=== PATIENT | male | born 1965 | race Caucasian/White ===

== ENCOUNTER 2020-12-10 09:29 | Outpatient (RCR) | payer OTHER, SELFPAY | END 2021-02-24 08:11 | disposition home or self-care (01) | LOC: ANHDMC 09:29 | PROVIDERS: PCP Internal Medicine; Visit Provider Nurse Practitioner | DX: E11.9 Type 2 diabetes mellitus without complications (principal); Z71.89 Other specified counseling | CPT/HCPCS: G0108 ==

== ENCOUNTER 2021-05-28 10:11 | Emergency (ER) | payer OTHER, SELFPAY ==
[2021-05-28 10:17] VITALS: BP 135/88; PULSE 96; RESP 12; TEMP 36.6; O2SAT 99
--- NOTE | 2021-05-28 10:20 | ED.EXTPRO ---
HPI - Extremity Problem General Chief complaint: Extremity Problem,Nontraumatic Stated complaint: lt ankle/foot pain Time Seen by Provider: 05/28/21 10:25 Source: patient, RN notes reviewed and old records reviewed Mode of arrival: ambulatory Limitations: no limitations History of Present Illness HPI Narrative: 55-year-old male who presents to [facility] with complaints of left ankle foot pain for the past 3 days. Patient states that he usually gets gout flare about every 10 month and he is out of his Mitigare. Patient states that he ate some Kamar food on Tuesday which is the only thing he has done or eaten differently. Patient states he has also noticed some swelling to the palmar aspects of bilateral hands with no pain voiced, denies any difficulty with his swallowing or any difficulty with breathing. Respirations are even and nonlabored no tachypnea noted SaO2 99% on room air. MD Complaint: extremity pain, extremity swelling and joint swelling Onset (ago): day(s) (3) Pain Consistency: constant Location: left and lower extremity (ankle) Severity scale (1-10): 8 ( ) Quality: sharp and other (throbbing) Radiation: none Exacerbating factors: walking Associated symptoms: other (york aspect of hands swollen) Context: history of gout Related Data Home Medications Medication Instructions Recorded Confirmed colchicine [Mitigare] 0.6 mg PRN PRN 09/04/19 05/28/21 fenofibrate 160 mg PO DAILY 09/04/19 05/28/21 Allergies Allergy/AdvReac Type Severity Reaction Status Date / Time lisinopril Allergy Severe Other Verified 05/28/21 10:18 naproxen Allergy Mild rash Verified 05/28/21 10:18 Review of Systems Review of Systems: CONSTITUTIONAL: Denies fever, chills, or sweats. EYES: Denies visual changes, redness, or discharge. ENT: Denies rhinorrhea, congestion, sore throat, or otalgia. CARDIOVASCULAR: Denies chest pain, palpitations, or edema. RESPIRATORY: Denies cough or dyspnea. GASTROINTESTINAL: Denies abdominal pain, nausea, vomiting, or diarrhea. GENITOURINARY: Denies dysuria or hematuria. SKIN: Denies rash or itching.Swelling to bilateral york hands denies any itching no redness or warmth noted. MUSCULOSKELETAL: Denies back pain,positive left ankle and foot pain, or myalgia. NEUROLOGIC: Denies headache, numbness, or weakness. PSYCHIATRIC: Denies anxiety or depression. All systems reviewed & are unremarkable except as noted in HPI and below PMFSH Past Medical History Medical History Angioedema Due to lisinopril back in March of 2018 and again this admission Colon polyps chronic Gout Hyperlipidemia Hypertension Surgical History Surgical History H/O rectal polypectomy Family History Family History Father Carcinoma of colon Mother Brain tumor Social History Social History Social History: The patient is to denice. He is designated as a full code. Occasionally smoke a cigar. Social drinker. He has 2 healthy children. 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 Smoking status: Light tobacco smoker Tobacco type: cigars Alcohol intake: current Alcohol use details: Social Substance use: never Gender identity (if verbalized by the patient): Male Spiritual care concerns: No Agree to blood products: Yes Comments At time of signature, agree with nursing past medical, surgical, social and family history. There is no relevant family history pertinent to the presenting complaint Exam Narrative: GENERAL: Well-appearing, well-nourished, and in no acute distress. HEAD: Normocephalic, atraumatic. EYES: PERRLA and EOMI. ENT: Nares clear, no rhinorrhea or epistaxis. Mucous membranes moist.TM' s normal with good light reflex bilaterally, throat pink with no e
== END 2021-05-28 11:00 | disposition home or self-care (01) ==
PROVIDERS: Emergency Provider Registered Nurse; PCP Internal Medicine
DX: M10.9 Gout, unspecified (principal); Z72.0 Tobacco use; E78.5 Hyperlipidemia, unspecified; I10 Essential (primary) hypertension
CPT/HCPCS: 99213; G0463

== ENCOUNTER 2021-08-07 22:44 | Emergency (ER) | payer OTHER, SELFPAY ==
[2021-08-07 22:50] VITALS: BP 166/106; PULSE 84; RESP 18; TEMP 35.9; O2SAT 100
[2021-08-08 00:42] VITALS: BP 155/104; PULSE 71; RESP 15; O2SAT 97
--- NOTE | 2021-08-08 01:23 | ED.ALLEREA ---
HPI - Allergic Reaction General Chief complaint: Allergic Reaction Stated complaint: tongue swelling used epi pen at 2044 Time Seen by Provider: 08/08/21 00:35 Source: patient and RN notes reviewed Mode of arrival: ambulatory Limitations: no limitations History of Present Illness HPI narrative: This is a 56 year old male with history of angioedema who presents for evaluation of tongue swelling. He states he developed tongue swelling around 8 pm tonight. He took an epipen 4 hours ago. He states his tongue swelling has improved. He denies difficulty swallowing, difficulty breathing , rash or sore throat. This is his 3rd episode and his last episode was 2 years ago. Patient states his first episode was due to ACEI but his blood pressure medication was changed. Related Data Home Medications Medication Instructions Recorded Confirmed colchicine [Mitigare] 0.6 mg PRN PRN 09/04/19 05/28/21 fenofibrate 160 mg PO DAILY 09/04/19 05/28/21 Allergies Allergy/AdvReac Type Severity Reaction Status Date / Time lisinopril Allergy Severe Other Verified 08/07/21 22:54 naproxen Allergy Mild rash Verified 08/07/21 22:54 Review of Systems Review of Systems: All systems reviewed & are unremarkable except as noted in HPI and below PMFSH Past Medical History Medical History Angioedema Due to lisinopril back in March of 2018 and again this admission Colon polyps chronic Gout Hyperlipidemia Hypertension Surgical History Surgical History H/O rectal polypectomy Family History Family History Father Carcinoma of colon Mother Brain tumor Social History Social History Social History: The patient is to denice. He is designated as a full code. Occasionally smoke a cigar. Social drinker. He has 2 healthy children. 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 Smoking status: Light tobacco smoker Tobacco type: cigars Alcohol intake: current Alcohol use details: Social Substance use: never Gender identity (if verbalized by the patient): Male Spiritual care concerns: No Agree to blood products: Yes Exam Const: General: no acute distress and alert Orientation/consciousness: patient oriented x3 HENMT: Head: normocephalic Face and sinus: face symmetric Mouth: Yes lip normal, Yes moist mucous membranes, Yes tongue abnormal (moderate tongue swelling present), No trismus and No restricted motion Throat: uvula midline Eyes: Pupils: Equal, round and reactive pupils present EOM: EOMs intact bilaterally Chest: Chest palpation & inspection: normal inspection of the chest Resp: Effort & Inspection: normal respiratory effort and no retractions Auscultation: clear to auscultation bilaterally Cardio: Rate: regular rate Skin: General skin exam: normal color Rashes: no rashes Neuro: General: patient oriented x3, moves all extremities and CN's II-XI intact bilaterally Course Reevaluation(s) Reevaluation #1: Patient states he continues to have improvement in his swelling. He would like to be discharged home. He was given return precautions. Date: 08/08/21 Time: 03:02 Vital Signs Vital signs: Vital Signs Temperature 96.7 F L 08/07/21 22:50 Pulse Rate 84 08/07/21 22:50 Respiratory Rate 18 08/07/21 22:50 Blood Pressure 166/106 H 08/07/21 22:50 Pulse Oximetry 100 08/07/21 22:50 Temperature 96.7 F L 08/07/21 22:50 Pulse Rate 79 08/08/21 03:20 Respiratory Rate 18 08/08/21 03:20 Blood Pressure 132/91 H 08/08/21 03:20 Pulse Oximetry 98 08/08/21 03:20 Discharge Plan Discharge Clinical Impression: Angioedema Qualifiers: Encounter type: initial encounter Qualified Code(s): T78.3XXA - Angioneurotic edema, initial enc
[2021-08-08] MEDS: predniSONE 20 MG TABLET 60 MG PO (01:35)
[2021-08-08] MEDS: FAMOTIDINE 20 MG TABLET PO (01:36)
[2021-08-08 01:37] VITALS: BP 149/99; PULSE 83; RESP 20; O2SAT 98
[2021-08-08 03:20] VITALS: BP 132/91; PULSE 79; RESP 18; O2SAT 98
== END 2021-08-08 03:24 | disposition home or self-care (01) ==
PROVIDERS: Emergency Provider General Practice; PCP Internal Medicine
DX: T78.3XXA Angioneurotic edema, initial encounter (principal); E78.5 Hyperlipidemia, unspecified; I10 Essential (primary) hypertension; M10.9 Gout, unspecified; Z87.19 Personal history of other diseases of the digestive system; F17.290 Nicotine dependence, other tobacco product, uncomplicated
CPT/HCPCS: 99283; A9270; J7512

== ENCOUNTER 2021-10-05 14:52 | Emergency (ER) | payer OTHER, SELFPAY ==
--- NOTE | 2021-10-05 14:56 | ED.URI ---
HPI - URI/Sore Throat General Chief Complaint: Upper Respiratory Infection Stated Complaint: cough Time Seen by Provider: 10/05/21 14:57 Source: patient and RN notes reviewed History of Present Illness HPI Narrative: Patient is a 56-year-old male who presents the urgent care with complaints of a persistent cough for the last 4 to 5 days. Patient states that he had Covid and was recently out of quarantine last . Patient states that since then the cough has been persistent. States that the cough is mostly dry. Denies of any recent fevers, nausea, vomiting, chest pain or shortness of breath. Patient states has been using cough drops to help soothe the cough. No other acute complaints. No acute distress noted. Patient is vaccinated for Covid. Patient aware of the plan of care. Some parts of this dictation were generated by voice recognition software and may contain typographical and/or grammatical inaccuracies. Related Data Home Medications Medication Instructions Recorded Confirmed colchicine [Mitigare] 0.6 mg PRN PRN 09/04/19 05/28/21 fenofibrate 160 mg PO DAILY 09/04/19 05/28/21 Allergies Allergy/AdvReac Type Severity Reaction Status Date / Time lisinopril Allergy Severe Other Verified 10/05/21 15:03 naproxen Allergy Mild rash Verified 10/05/21 15:03 Review of Systems Review of Systems: CONSTITUTIONAL: Denies fever, chills, or sweats. EYES: Denies visual changes, redness, or discharge. ENT: Denies rhinorrhea, congestion, sore throat, or otalgia. CARDIOVASCULAR: Denies chest pain, palpitations, or edema. RESPIRATORY: Reports of dry cough without dyspnea GASTROINTESTINAL: Denies abdominal pain, nausea, vomiting, or diarrhea. GENITOURINARY: Denies dysuria or hematuria. SKIN: Denies rash or itching. MUSCULOSKELETAL: Denies back pain, joint pain, or myalgia. NEUROLOGIC: Denies headache, numbness, or weakness. All other systems reviewed are negative, except as documented in HPI. [facility] Past Medical History Medical History Angioedema Due to lisinopril back in March of 2018 and again this admission Colon polyps chronic Gout Hyperlipidemia Hypertension Surgical History Surgical History H/O rectal polypectomy Family History Family History Father Carcinoma of colon Mother Brain tumor Social History Social History Social History: The patient is to denice. He is designated as a full code. Occasionally smoke a cigar. Social drinker. He has 2 healthy children. 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 Smoking status: Light tobacco smoker Tobacco type: cigars Alcohol intake: current Alcohol use details: Social Substance use: never Gender identity (if verbalized by the patient): Male Spiritual care concerns: No Agree to blood products: Yes Comments At the time of my signature, I reviewed and agree with the nursing past medical, surgical, social, and family history. There is no relevant family history pertinent to the patient complaint. Exam Narrative: GENERAL: This is a well-nourished, well-developed patient, in no apparent distress. HEAD: normocephalic, atraumatic. EYES: PERRL. Sclera clear/white. Vision is grossly intact. EARS: External ears normal, auditory canals clear and without drainage, TMs normal without perforation. Hearing grossly intact. NOSE: External nose normal with no obvious nasal discharge, nares without redness, no rhinorrhea. THROAT: Mucous membranes moist, posterior pharynx clear. Moderate postnasal drainage NECK: Neck supple CARDIOVASCULAR: Regular rate and rhythm without murmurs, gallops, or rubs. RESPIRATORY: Clear to auscultation. Breath sounds equal bilaterally. No wheezes, rales, or rhonchi. Dry cough on
[2021-10-05 15:00] VITALS: BP 165/106; PULSE 92; RESP 16; TEMP 37; O2SAT 98
== END 2021-10-05 15:23 | disposition home or self-care (01) ==
PROVIDERS: Emergency Provider Nurse Practitioner Family; PCP Internal Medicine
DX: R05.9 Cough, unspecified (principal); U09.9 Post COVID-19 condition, unspecified; E78.5 Hyperlipidemia, unspecified; I10 Essential (primary) hypertension; F17.200 Nicotine dependence, unspecified, uncomplicated
CPT/HCPCS: 99213; G0463

== ENCOUNTER 2022-02-25 04:48 | Emergency (ER) | payer OTHER, SELFPAY ==
[2022-02-25 04:50] VITALS: BP 148/84; PULSE 100; RESP 16; TEMP 36.2; O2SAT 97
--- NOTE | 2022-02-25 04:58 | ED.ALLEREA ---
HPI - Allergic Reaction General Chief complaint: Allergic Reaction Stated complaint: facial swelling Time Seen by Provider: 02/25/22 04:58 Source: patient Mode of arrival: ambulatory Limitations: no limitations History of Present Illness HPI narrative: Pt is a 56 yo male with a history of angioedema presenting to the ER for evaluation of tongue swelling. Pt reports tongue swelling that began this morning for which patient has taken oral benadryl. Patient reports the right side of his tongue is swollen. He denies facial swelling, lip edema. He denies difficulty swallowing, shortness of breath. Denies chest pain. Patient states in the past this has occurred it was initially attributed to his antihypertensive medication and was taken off the lisinopril. Since that time, he has been compliant with his metoprolol, nifedipine, fenofibrate, states his would be his third episode since the medication change. Patient is requesting oral medication only, does not have any hives, itching, wheezing, nausea, vomiting or diarrhea. In the past, patient states his allergy work-up has been negative. Related Data Home Medications Medication Instructions Recorded Confirmed fenofibrate 160 mg PO DAILY 09/04/19 10/05/21 Allergies Allergy/AdvReac Type Severity Reaction Status Date / Time lisinopril Allergy Severe Other Verified 02/25/22 04:55 naproxen Allergy Mild rash Verified 02/25/22 04:55 Review of Systems Review of Systems: CONSTITUTIONAL: Denies fever HEENT: Reports tongue edema of the right side CARDIOVASCULAR: Denies chest pain RESPIRATORY: Denies cough or dyspnea. GASTROINTESTINAL: Denies abdominal pain SKIN: Denies rash MUSCULOSKELETAL: Denies back pain NEUROLOGIC: Denies headache PMFSH Past Medical History Medical History Angioedema Due to lisinopril back in March of 2018 and again this admission Colon polyps chronic Gout Hyperlipidemia Hypertension Surgical History Surgical History H/O rectal polypectomy Family History Family History Father Carcinoma of colon Mother Brain tumor Social History Social History Social History: The patient is to denice. He is designated as a full code. Occasionally smoke a cigar. Social drinker. He has 2 healthy children. 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 Smoking status: Light tobacco smoker Tobacco type: cigars Alcohol intake: current Alcohol use details: Social Substance use: never Gender identity (if verbalized by the patient): Male Spiritual care concerns: No Agree to blood products: Yes Exam Narrative: GENERAL: Awake, alert, conversant HEAD: Normocephalic, atraumatic. EYES: PERRLA and EOMI. ENT: Nares clear, no rhinorrhea or epistaxis. Mucous membranes moist. Mild to moderate right tongue edema without uvular edema. No trismus. No lip edema. No neck edema. NECK: Supple. CHEST: No respiratory distress, breathing even and non labored HEART: Regular rate, sinus rhythm ABDOMEN:Non distended, non tender EXTREMITIES: Normal range of motion. No edema. SKIN: Warm, dry, no rash. NEURO:No focal deficits. Alert and oriented x3 Course Vital Signs Vital signs: Vital Signs Temperature 36.2 C L 02/25/22 04:50 Pulse Rate 100 02/25/22 04:50 Respiratory Rate 16 02/25/22 04:50 Blood Pressure 148/84 H 02/25/22 04:50 Pulse Oximetry 97 02/25/22 04:50 Temperature 36.2 C L 02/25/22 04:50 Pulse Rate 77 02/25/22 06:16 Respiratory Rate 15 02/25/22 06:16 Blood Pressure 122/90 02/25/22 06:16 Pulse Oximetry 97 02/25/22 06:16 MDM - Allergic Reaction MDM Narrative Medical decision making narrative: Patient presenting for evaluation of tongue edema which is mild on exam wi
[2022-02-25] MEDS: EPINEPHrine HCL INJ 1 MG/ML AMPUL 0.3 MG IM (05:14)
[2022-02-25] MEDS: FAMOTIDINE 20 MG TABLET 40 MG PO (05:17)
[2022-02-25] MEDS: diphenhydrAMINE HCl CAP 25 MG CAPSULE 50 MG PO (05:17)
[2022-02-25 05:21] VITALS: BP 137/93; PULSE 83; RESP 14; O2SAT 95
[2022-02-25 05:31] VITALS: BP 132/90; PULSE 83; RESP 19; O2SAT 95
[2022-02-25 06:16] VITALS: BP 122/90; PULSE 77; RESP 15; O2SAT 97
[2022-02-25 07:12] VITALS: BP 143/99; PULSE 81; RESP 19; O2SAT 100
== END 2022-02-25 07:13 | disposition home or self-care (01) ==
PROVIDERS: Emergency Provider Emergency Medicine; PCP Internal Medicine
DX: T78.3XXA Angioneurotic edema, initial encounter (principal); I10 Essential (primary) hypertension; E78.5 Hyperlipidemia, unspecified; Z86.010 Personal history of colon polyps; M10.9 Gout, unspecified; K63.5 Polyp of colon; Z87.19 Personal history of other diseases of the digestive system
CPT/HCPCS: 96372; 99283; A9270; J0171; J1100

== ENCOUNTER 2023-01-26 13:40 | Emergency (ER) | payer BC, SELFPAY ==
[2023-01-26 13:51] VITALS: BP 171/111; PULSE 70; RESP 16; TEMP 36.9; O2SAT 100
--- NOTE | 2023-01-26 13:54 | ED.URI ---
HPI - URI/Sore Throat General Chief Complaint: Upper Respiratory Infection Stated Complaint: sinus drainage, cough Time Seen by Provider: 01/26/23 13:55 Source: patient and RN notes reviewed Mode of arrival: ambulatory Limitations: no limitations History of Present Illness HPI Narrative: 57-year-old male presents concern for 9 day history of sinus congestion, drainage, postnasal drainage, cough. Reports he has been taking multiple [id number] medications without relief. He denies shortness of breath, fever, aches, chills, sweats MD elicited complaint: cough and nasal congestion Related Data Home Medications Medication Instructions Recorded Confirmed fenofibrate 160 mg tablet 160 mg PO DAILY 09/04/19 01/26/23 metformin 500 mg tablet,extended 500 mg PO DAILY 01/26/23 01/26/23 release 24 hr Allergies Allergy/AdvReac Type Severity Reaction Status Date / Time lisinopril Allergy Severe Other Verified 01/26/23 13:54 naproxen Allergy Mild rash Verified 01/26/23 13:54 Review of Systems Review of Systems: CONSTITUTIONAL: Denies malaise, chills, sweats, or fever. EYES: Denies visual changes, redness, or discharge. ENT: Reports rhinorrhea, congestion. Denies sinus pain, otalgia and sore throat. CARDIOVASCULAR: Denies chest pain, palpitations, or edema. RESPIRATORY: Reports cough. Denies dyspnea. GASTROINTESTINAL: Denies abdominal pain, nausea, vomiting, diarrhea SKIN: Denies rash or itching. MUSCULOSKELETAL: Denies myalgia. NEUROLOGIC: Denies headache. All systems reviewed & are unremarkable except as noted in HPI and below PMFSH Past Medical History Medical History Angioedema Due to lisinopril back in March of 2018 and again this admission Colon polyps chronic Gout Hyperlipidemia Hypertension Surgical History Surgical History H/O rectal polypectomy Family History Family History Father Carcinoma of colon Mother Brain tumor Social History Social History Social History: The patient is to denice. He is designated as a full code. Occasionally smoke a cigar. Social drinker. He has 2 healthy children. 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 Smoking status: Light tobacco smoker Tobacco type: cigars Alcohol intake: current Alcohol use details: Social Substance use: never Living arrangements: with family Gender identity (if verbalized by the patient): Male Spiritual care concerns: No Agree to blood products: Yes Comments At time of signature, agree with nursing past medical, surgical, social and family history. There is no relevant family history pertinent to the presenting complaint Exam Narrative: GENERAL: Well-appearing, well-nourished, and in no acute distress. HEAD: Normocephalic EYES: PERRLA, conjunctivae clear ENT: Nares clear, turbinates edematous and erythematous, sinus tenderness. Mucous membranes moist. TM pearly falk with dull light reflex bilaterally; no tragal tenderness. Oropharynx not erythematous without lesions. Tonsils not enlarged and without exudate, no drooling, no hoarseness, no trismus, uvula midline. NECK: Supple. No lymphadenopathy CHEST: Clear to auscultation, breath sounds equal. No wheezing, rhonchi, rales, or stridor. No respiratory distress, speaks in full sentences. HEART: Regular rate and rhythm. No murmur heard. SKIN: Warm, dry, no rash. NEURO: Alert and oriented x3. PSYCH: Normal mood and affect Course Course Emergency Course: Patient is aware of diagnosis, understands and agrees to treatment plan. Anticipatory guidance given. Patient agrees to follow-up as directed and is aware of reasons to seek care at the emergency department. Portions of this record may have been created with voice recognition
== END 2023-01-26 14:05 | disposition home or self-care (01) ==
PROVIDERS: Emergency Provider Nurse Practitioner; PCP Internal Medicine
DX: J32.9 Chronic sinusitis, unspecified (principal); J40 Bronchitis, not specified as acute or chronic; F17.290 Nicotine dependence, other tobacco product, uncomplicated; M10.9 Gout, unspecified; E78.5 Hyperlipidemia, unspecified; I10 Essential (primary) hypertension
CPT/HCPCS: 99213; G0463